=== PATIENT | male | born 2000 | race Caucasian/White ===

== ENCOUNTER 2023-11-28 12:45 | Outpatient (REF) | payer OTHER, SELFPAY ==
--- NOTE | ~2023-11-28 | MR_ITS ---
EXAMINATION: MRI LEFT ELBOW WITHOUT CONTRAST INDICATION: Left elbow pain. COMPARISON: None available. TECHNIQUE: Multiplanar MR imaging was obtained through the left elbow without contrast on a 1.5 Lise magnet. FINDINGS: LIGAMENTS: Ulnar Collateral Ligament: There is a partial tear of the ulnar collateral ligament with tear of the origin of the posterior bundle at the medial epicondylar origin and a partial tear of the anterior bundle at the sublime tubercle. Radial Collateral Ligament: The RCL and lateral ulnar collateral ligament are completely disrupted at the lateral epicondylar origin with fluid extending to the defect into the overlying soft tissues. TENDONS AND MUSCLES: Common Flexor: Mild edema signal around the common flexor origin is likely reactive to the underlying ligament tear. No appreciable, extensor tendon tears. Common Extensor: The common extensor tendon is near-completely torn at the lateral condyle origin with a few thin residual intact anterior fibers. A more posterior portion of the tendon is full-thickness. Surrounding muscles are edematous. Biceps: Intact. Brachialis: The more lateral fibers of the brachialis tendon are intact. The medial half of the brachialis muscle is torn at the level of the distal humerus, 4 cm from the insertion with an associated 2.5 x 1.8 x 3.5 cm fluid-filled collection occupying the defect. The more lateral portion of the muscle is strained. Triceps: Intact. BONE and ARTICULAR CARTILAGE: There is an osseous contusion at the posterior margin of the capitellum laterally with subtle cortical irregularity. No discrete fractures. An osseous contusion is also present at the posterior margin of the medial humeral epicondyle without a discrete fracture. Sensitivity for small avulsion fractures is limited. The ulna and radius appear intact without appreciable fractures. Articular cartilage is normal. NERVES: Ulnar nerve is normal in appearance. JOINT FLUID AND JOINT CAPSULE: Moderate-sized joint effusion. The anterior joint capsule appears disrupted near the insertion on the coronoid process with proximal retraction by 1.3 cm. The capsule also appears torn at the attachments to the posterior margin of the distal humerus laterally near the capitellum. SOFT TISSUES: Generalized soft tissue swelling and edema at the elbow with significant subcutaneous edema both medially and laterally. MR/MR elbow LT wo con IMPRESSION: 1. Complete tears of the radial collateral ligament and lateral ulnar collateral ligaments at the lateral epicondylar origin with extension through the majority of the common extensor tendon. 2. Partial tear of the ulnar collateral ligament. 3. Tear of the medial half of the brachialis muscle at the level of the distal humerus with associated disruption of the anterior joint capsule. 4. Osseous contusions at the posterior margin of the medial humeral epicondyle and posterior margin of the capitellum. 5. Moderate-sized joint effusion.
== END 2023-11-28 12:46 | disposition home or self-care (01) ==
LOC: HO.MRI 12:45
PROVIDERS: Visit Provider Family Medicine
DX: M25.522 Pain in left elbow (principal)
CPT/HCPCS: 73221